=== PATIENT | female | born 1960 | race Caucasian/White ===

== ENCOUNTER 2019-06-11 23:16 | Inpatient (IN) | payer BC ==
[~2019-06-11] VITALS: Ht 160 cm; Wt 37.0 kg
[~2019-06-11 23:16] MED LIST: ESTR1TAB6 PO; METO-282 PO
--- NOTE | 2019-06-11 23:29 | NUR ---
PT BIB CARE FLIGHT FROM [place] FOR SBO. WHILE AT [facility] PT WAS GIVEN IV DILAUDID, ZOFRAN AND ATIVAN, APPROX 500ML NS. PT STATES LBM TODAY. UPON ARRIVAL TO ER NG IN PLACE RIGHT NARE. PT STILL DROWSY FROM MEDS BUT ABLE TO ANSWER QUESTIONS AND AROUSES TO VERBAL STIMULI. HX OF BOWEL RESECTION WHICH WAS DONE HERE AT [facility] WHICH BRINGS PT BACK FOR ADMIT. VSS AT THIS TIME, CONNECTED TO ALL MONITORING. PT SISTER AND BROTHER IN LAW AT BEDSIDE. PT GAVE PERMISSION TO SHARE MEDICAL INFORMATION WITH THEM. CALL LIGHT WITHIN REACH. AWAITING MD ASSESSMENT AND FURTHER ORDERS AT THIS TIME
[2019-06-12] MEDS ORDERED: MAGNESIUM SULFATE 1 GM, THIAMINE 100 MG, FOLIC ACID 1 MG, MVI ADULT 10 ML in SODIUM CHL... IV ONE
--- NOTE | 2019-06-12 00:16 | NUR ---
NG TUBE TESTED WITH AUSCULTATION, SUCTION SET TO LOW INTERMITTENT
--- NOTE | 2019-06-12 00:17 | NUR ---
RAD COMPLETED. LABS COLLECTED. FAMILY AT BEDSIDE. CALL LIGHT WITHIN REACH
[2019-06-12 00:19] LABS: BASOPHILS # (AUTO) 0.01 x10^3/uL (0-0.1); BASOPHILS % (AUTO) 0 % (0-1); EOSINOPHILS # (AUTO) 0.01 x10^3/uL (0-0.4); EOSINOPHILS % (AUTO) 0 % (1-7); LYMPHOCYTES # (AUTO) 1.03 x10^3/uL (1-3.4); LYMPHOCYTES % (AUTO) 11 % (22-44); MD NO; MEAN CORPUSCULAR HEMOGLOBIN 33.5 pg (27.0-34.8); MEAN CORPUSCULAR HGB CONC 33.8 g/dL (32.4-35.8); MEAN CORPUSCULAR VOLUME 99.2 fL (80-100); MEAN PLATELET VOLUME 7.5 fL (7.4-10.4); MONOCYTES # (AUTO) 0.54 x10^3/uL (0.2-0.8); MONOCYTES % (AUTO) 6 % (2-9); NEUTROPHILS # (AUTO) 7.93 x10^3/uL (1.8-6.8); NEUTROPHILS % (AUTO) 83 % (42-75); PLATELET COUNT 249 x10^3/uL (130-400); RED CELL DISTRIBUTION WIDTH 14.5 % (9.6-15.2)
--- NOTE | 2019-06-12 01:02 | NUR ---
sister: ham: [phone]
--- NOTE | 2019-06-12 01:07 | NUR ---
BREAK RN, PT VSS IN NAD AT THIS TIME
[2019-06-12] MEDS: SODIUM CHLORIDE 0.9% 1,000 ML IV SCH ×3 (01:29→19:44)
[2019-06-12] MEDS ORDERED: ONDANSETRON 2MG/ML, 2ML IVPush PRN (01:30)
--- NOTE | 2019-06-12 01:35 | NUR ---
report to gisela pt to [phone] in nad with tech
[2019-06-12 01:58] VITALS: BP 142/85
[2019-06-12 03:18] VITALS: BP 142/89
[2019-06-12] MEDS: morphine SULFATE 10 MG/ML, 1ML IVPush PRN ×6 (03:34→23:00)
[2019-06-12 07:28] VITALS: BP 157/86
[2019-06-12] MEDS: FAMOTIDINE 20 MG/2 ML IVPush SCH ×2 (10:28→10:29)
[2019-06-12 13:40] VITALS: BP 159/82
[2019-06-12 19:11] VITALS: BP 151/82
[2019-06-13 01:57] VITALS: BP 142/64
[2019-06-13] MEDS: morphine SULFATE 10 MG/ML, 1ML IVPush PRN (02:56)
[2019-06-13 05:25] LABS: BASOPHILS # (AUTO) 0.04 x10^3/uL (0-0.1); BASOPHILS % (AUTO) 1 % (0-1); EOSINOPHILS # (AUTO) 0.14 x10^3/uL (0-0.4); EOSINOPHILS % (AUTO) 2 % (1-7); LYMPHOCYTES # (AUTO) 1.52 x10^3/uL (1-3.4); LYMPHOCYTES % (AUTO) 20 % (22-44); MD NO; MEAN CORPUSCULAR HEMOGLOBIN 33.5 pg (27.0-34.8); MEAN CORPUSCULAR HGB CONC 33.3 g/dL (32.4-35.8); MEAN CORPUSCULAR VOLUME 100.8 fL (80-100); MEAN PLATELET VOLUME 8.3 fL (7.4-10.4); MONOCYTES # (AUTO) 0.71 x10^3/uL (0.2-0.8); MONOCYTES % (AUTO) 9 % (2-9); NEUTROPHILS # (AUTO) 5.11 x10^3/uL (1.8-6.8); NEUTROPHILS % (AUTO) 68 % (42-75); PLATELET COUNT 223 x10^3/uL (130-400); RED BLOOD COUNT 3.79 x10^6/uL (3.82-5.3); RED CELL DISTRIBUTION WIDTH 14.4 % (9.6-15.2)
[2019-06-13 05:45] LABS: ALBUMIN 3.1 g/dL (3.4-5.0); ANION GAP 8 mmol/L (5-15); CHLORIDE 110 mmol/L (98-107); CREATININE 0.43 mg/dL (0.55-1.02)
[2019-06-13 05:48] LABS: ALANINE AMINOTRANSFERASE 14 U/L (12-78); ALKALINE PHOSPHATASE 46 U/L (45-117); BILIRUBIN,TOTAL 0.7 mg/dL (0.2-1.0)
[2019-06-13] MEDS ORDERED: MIDAZOLAM 1 MG/ML, 2ML ONE (06:46)
[2019-06-13] MEDS ORDERED: FENTANYL PF 250 MCG/5ML ONE (06:46)
[2019-06-13] MEDS ORDERED: ROCURONIUM 10MG/ML,5ML ONE (06:46)
[2019-06-13] MEDS ORDERED: CEFOTETAN PMX 2GM/50ML 50 ML ONE (07:29)
[2019-06-13] MEDS: SODIUM CHLORIDE 0.9% 1,000 ML IV SCH ×2 (07:29→17:29)
[2019-06-13] MEDS ORDERED: ONDANSETRON 2MG/ML, 2ML ONE (07:29)
[2019-06-13] MEDS ORDERED: DEXAMETHASONE 4 MG/ML, 1ML ONE (07:29)
[2019-06-13] MEDS ORDERED: PROPOFOL 10 MG/ML, 20ML ONE (07:29)
[2019-06-13] MEDS ORDERED: LIDOCAINE-MPF 2% ,5ML ONE (07:29)
[2019-06-13] MEDS ORDERED: PHENYLEPHRINE 10 MG/ML ONE (07:29)
[2019-06-13] MEDS ORDERED: PROMETHAZINE 25 MG/ML, 1ML IV PRN (07:30)
[2019-06-13] MEDS ORDERED: OXYcodone 5 MG/5 ML ORAL.SOL UDC PO PRN (07:30)
[2019-06-13] MEDS ORDERED: ALBUTEROL/IPRATROPIUM 2.5MG/0.5MG, 3 ML NPPB PRN (07:30)
[2019-06-13] MEDS ORDERED: FENTANYL PF 100 MCG/2ML IV PRN (07:30)
[2019-06-13] MEDS ORDERED: HYDROmorphone 2 MG/ML, 1ML IVPush PRN (07:30)
[2019-06-13] MEDS ORDERED: LORazepam 2 MG/ML, 1ML IVPush PRN (07:30)
[2019-06-13] MEDS ORDERED: hydrALAzine 20 MG/ML, 1ML IV PRN (07:30)
[2019-06-13] MEDS ORDERED: ACETAMINOPHEN 325 MG TABLET PO PRN (07:30)
[2019-06-13] MEDS ORDERED: SUGAMMADEX 200 MG/2 ML IVPush ONE (07:31)
[2019-06-13] MEDS: MEPERIDINE/PF 25MG/ML,1ML IVPush PRN ×2 (08:50→09:12)
[2019-06-13] MEDS ORDERED: MEPERIDINE/PF 25MG/ML,1ML ONE (09:03)
[2019-06-13 09:48] VITALS: BP 130/84
[2019-06-13] MEDS: FAMOTIDINE 20 MG/2 ML IVPush SCH ×2 (09:50→21:18)
[2019-06-13] MEDS: D5%-0.45NACL+KCL 20MEQ 1,000 ML IV SCH ×2 (11:26→17:27)
[2019-06-13 13:37] VITALS: BP 124/73
[2019-06-13 19:30] VITALS: BP 152/89
[2019-06-14 00:20] VITALS: BP 126/73
[2019-06-14] MEDS: SODIUM CHLORIDE 0.9% 1,000 ML IV SCH ×3 (00:51→21:55)
[2019-06-14] MEDS: D5%-0.45NACL+KCL 20MEQ 1,000 ML IV SCH ×4 (02:48→21:56)
[2019-06-14 03:55] VITALS: BP 130/75
[2019-06-14 06:31] LABS: ANION GAP 5 mmol/L (5-15); CALCIUM 7.5 mg/dL (8.5-10.1); CHLORIDE 110 mmol/L (98-107)
[2019-06-14 06:32] LABS: CREATININE 0.48 mg/dL (0.55-1.02)
[2019-06-14 06:52] LABS: BASOPHILS # (AUTO) 0.03 x10^3/uL (0-0.1); BASOPHILS % (AUTO) 0 % (0-1); EOSINOPHILS # (AUTO) 0.01 x10^3/uL (0-0.4); EOSINOPHILS % (AUTO) 0 % (1-7); LYMPHOCYTES # (AUTO) 1.28 x10^3/uL (1-3.4); LYMPHOCYTES % (AUTO) 22 % (22-44); MD NO; MEAN CORPUSCULAR HEMOGLOBIN 33.8 pg (27.0-34.8); MEAN CORPUSCULAR HGB CONC 33.2 g/dL (32.4-35.8); MEAN CORPUSCULAR VOLUME 101.7 fL (80-100); MEAN PLATELET VOLUME 8.4 fL (7.4-10.4); MONOCYTES # (AUTO) 0.46 x10^3/uL (0.2-0.8); MONOCYTES % (AUTO) 8 % (2-9); NEUTROPHILS # (AUTO) 4.13 x10^3/uL (1.8-6.8); NEUTROPHILS % (AUTO) 70 % (42-75); PLATELET COUNT 194 x10^3/uL (130-400); RED BLOOD COUNT 3.47 x10^6/uL (3.82-5.3)
[2019-06-14 08:09] VITALS: BP 146/80
[2019-06-14] MEDS: FAMOTIDINE 20 MG/2 ML IVPush SCH ×2 (08:56→21:10)
[2019-06-14 13:41] VITALS: BP 134/80
[2019-06-14 19:24] VITALS: BP 155/97
[2019-06-15 00:21] VITALS: BP 149/93
[2019-06-15] MEDS: D5%-0.45NACL+KCL 20MEQ 1,000 ML IV SCH ×3 (04:09→21:20)
[2019-06-15 06:35] VITALS: BP 154/90
[2019-06-15] MEDS ORDERED: OXYcodone/APAP 7.5/325MG TABLET PO PRN (07:30)
[2019-06-15] MEDS: FAMOTIDINE 20 MG/2 ML IVPush SCH ×2 (08:30→20:13)
[2019-06-15 12:41] VITALS: BP 147/89
[2019-06-15 20:20] VITALS: BP 138/85
[2019-06-16 00:27] VITALS: BP 120/75
[2019-06-16 07:18] VITALS: BP 139/91
[2019-06-16] MEDS: FAMOTIDINE 20 MG/2 ML IVPush SCH (07:59)
[2019-06-16] MEDS ORDERED: METOPROLOL SUCCINATE 25 MG TAB.ER.24H PO SCH (09:00)
[2019-06-16] MEDS: D5%-0.45NACL+KCL 20MEQ 1,000 ML IV SCH (10:40)
[2019-06-16 11:45] VITALS: BP 153/97
== END 2019-06-16 12:00 | disposition home or self-care (01) | DRG 337 ==
LOC: ED 06-12 01:37 → EDIP 06-12 01:40 → 4NE 06-12 01:52 → DCLOUNGE 06-16 11:54
PROVIDERS: ADMIT Internal Medicine; ATTEND Internal Medicine
PROC: 0DN80ZZ Release Small Intestine, Open Approach (ICD-10-PCS; principal; 2019-06-13 07:00)
DX: K56.50 Intestinal adhesions [bands], unspecified as to partial versus complete obstruction (principal); I48.91 Unspecified atrial fibrillation; I11.9 Hypertensive heart disease without heart failure; J44.9 Chronic obstructive pulmonary disease, unspecified; F10.20 Alcohol dependence, uncomplicated; F17.210 Nicotine dependence, cigarettes, uncomplicated; Z98.82 Breast implant status
CPT/HCPCS: 36415; 74018; 74245; 96365; 99285; J3490; 80048; 80053; 80307; 83605; 83735; 84100; 85025; G0378; J1100; J2250; J2270; J2405; J2704; J3010; J3411; J3475; C1765; J2175; J2370; J3480; J7030